=== PATIENT | male | born 1980 | race American Indian/Alaskan Native ===

== ENCOUNTER 2017-01-16 19:39 | Emergency (ER) | payer SELFPAY ==
[2017-01-16 20:54] LABS: Basophils % (Auto) 0.3 % (0.0-1.8); Eosinophils % (Auto) 0.4 % (0.0-4.3); Hematocrit 48.1 % (35.5-45.6); Hemoglobin 15.7 gm/dl (11.8-15.2); Mean Corpuscular HGB Conc 33 % (32-34); Mean Corpuscular Hemoglobin 26 pg (28-32); Mean Corpuscular Volume 81 fl (84-94); Platelet Count 314 K/mm3 (140-440); Red Blood Count 5.98 M/mm3 (3.65-5.03); Red Cell Distribution Width 14.6 % (13.2-15.2); White Blood Count 13.3 K/mm3 (4.5-11.0)
[2017-01-16 21:02] LABS: Bilirubin,Urine NEG (Negative); Blood,Urine NEG (Negative); Ketones,Urine NEG (Negative); Leukocyte Esterase,Urine NEG (Negative); Mucus,Urine FEW /HPF; Nitrite,Urine NEG (Negative); Protein,Urine <15 mg/dL mg/dL (Negative); Urobilinogen,Urine < 2.0 mg/dL (<2.0)
[2017-01-16 21:10] LABS: Alanine Aminotransferase 14 units/L (7-56); Albumin 4.8 g/dL (3.9-5); Albumin/Globulin Ratio 1.8 %; Alkaline Phosphatase 75 units/L (35-129); Anion Gap 19 mmol/L; BUN/Creatinine Ratio 6.92; Blood Urea Nitrogen 9 mg/dL (9-20); Calcium 9.8 mg/dL (8.4-10.2); Carbon Dioxide 27 mmol/L (22-30); Chloride 97.7 mmol/L (98-107); Glucose 105 mg/dL (75-100); Lipase 34 units/L (13-60); Potassium 3.8 mmol/L (3.6-5.0); Sodium 140 mmol/L (137-145); Total Protein 7.4 g/dL (6.3-8.2)
--- NOTE | 2017-01-16 23:18 | Emergency Department Report ---
ED Abdominal Pain HPI - General Chief Complaint: Abdominal Pain Stated Complaint: ABD/CHEST PAIN Time Seen by Provider: 01/16/17 23:12 Source: patient Mode of arrival: Ambulatory Limitations: No Limitations - History of Present Illness Initial Comments: This is a 36-year-old gentleman with three-day history of epigastric discomfort with occasional nausea vomiting. He reports burning that extends up his chest as well. He states he had similar problem approximately one year ago and was told it was due to ulcer disease. He was placed on antacids for a month that time. He states he resolved. He reports again over the last few days he's had more worsening problems again. He does report improvement initially with food and then worsening shortly after. Denies any hematochezia or hematemesis. Reports pain being in the epigastric region. No radiation to the back. Does have some radiation again into the chest. No fever is reported. No trauma reported. - Related Data Previous Rx's Medication Instructions Recorded Last Taken Type Omeprazole Magnesium [PriLOSEC Otc] 20 mg PO QDAY #30 tablet. 01/17/17 Unknown Rx Promethazine [Phenergan TAB] 25 mg PO Q8HR PRN #20 tab 01/17/17 Unknown Rx oxyCODONE /ACETAMINOPHEN [Percocet 1 tab PO Q6HR PRN #20 tablet 01/17/17 Unknown Rx 5/325] Allergies Allergy/AdvReac Type Severity Reaction Status Date / Time No Known Allergies Allergy Verified 09/17/14 03:20 ED Review of Systems ROS: Stated complaint: ABD/CHEST PAIN Other details as noted in HPI Comment: All other systems reviewed and negative Constitutional: denies: chills, fever Eyes: denies: eye pain, eye discharge, vision change ENT: denies: ear pain, throat pain Respiratory: denies: cough, shortness of breath, wheezing Cardiovascular: denies: chest pain, palpitations Endocrine: no symptoms reported Gastrointestinal: abdominal pain, nausea, vomiting. denies: diarrhea Genitourinary: denies: urgency, dysuria Musculoskeletal: denies: back pain, joint swelling, arthralgia Skin: denies: rash, lesions Neurological: denies: headache, weakness, paresthesias Psychiatric: denies: anxiety, depression Hematological/Lymphatic: denies: easy bleeding, easy bruising ED Past Medical Hx - Past Medical History Previous Medical History?: Yes Hx Renal Disease: Yes (renal insufficiency) Hx Asthma: Yes - Surgical History Past Surgical History?: No - Social History Smoking Status: Current Every Day Smoker Substance Use Type: None - Medications Home Medications: Home Medications Medication Instructions Recorded Confirmed Last Taken Type Omeprazole Magnesium [PriLOSEC Otc] 20 mg PO QDAY #30 tablet. 01/17/17 Unknown Rx Promethazine [Phenergan TAB] 25 mg PO Q8HR PRN #20 tab 01/17/17 Unknown Rx oxyCODONE /ACETAMINOPHEN [Percocet 1 tab PO Q6HR PRN #20 tablet 01/17/17 Unknown Rx 5/325] ED Physical Exam - General Limitations: No Limitations General appearance: alert, in no apparent distress - Head Head exam: Present: atraumatic, normocephalic - Eye Eye exam: Present: normal appearance. Absent: scleral icterus - ENT ENT exam: Present: normal exam, normal orophraynx, mucous membranes moist - Neck Neck exam: Present: normal inspection - Respiratory Respiratory exam: Present: normal lung sounds bilaterally. Absent: respiratory distress, wheezes - Cardiovascular Cardiovascular Exam: Present: regular rate, normal rhythm. Absent: systolic murmur, diastolic murmur, rubs, gallop - GI/Abdominal GI/Abdominal exam: Present: soft, tenderness (epigastric region), normal bowel sounds. Absent: guarding - Rectal Rectal exam: Present: deferred - Extremities Exam Extremities exam: Present: normal inspection - Back Exam Back exam: Present: normal inspection. Absent: CVA tenderness (R), CVA tenderness (L), vertebral tenderness - Neurological Exam Neurological exam: Present: alert, oriented X3 - Psychiatric Psychiatric exam: Present: normal affect, normal mood - Skin Skin exam: Present: warm, dry, intact, normal color. Absent: rash ED Course Vital Signs 01/16/17 01/16/17 01/16/17 19:56 22:00 23:00 Temperature 99.2 F 98 F Pulse Rate 55 L 57 L Respiratory 18 16 16 Rate Blood Pressure 140/112 Blood Pressure 155/64 [Left] O2 Sat by Pulse 100 100 100 Oximetry 01/17/17 01:00 Temperature Pulse Rate 58 L Respiratory 16 Rate Blood Pressure Blood Pressure 113/61 [Left] O2 Sat by Pulse 100 Oximetry - Reevaluation(s) Reevaluation #1: 01/16/17 23:13 ECG at 1942 demonstrating sinus bradycardia at 53 bpm with a normal SD and QRS. Normal axis is noted as well. There are Q waves noted subtotally otherwise unremarkable. Reevaluation #2: 01/17/17 06:01 Labs and ECG are noted. They're unremarkable in general. There is a past suspicion of this being due to peptic ulcer disease. ECG is unremarkable again. I do not suspect cardiac etiology. Labs are unremarkable as well. I feel appropriate course of action at this time is to trial on PPI. I do not have suspicion for surgical etiology. ED Medical Decision Making - Lab Data Result diagrams: 01/16/17 20:15 01/16/17 20:15 Critical care attestation.: If time is entered above; I have spent that time in minutes in the direct care of this critically ill patient, excluding procedure time. ED Disposition Clinical Impression: Dyspepsia Abdominal pain Qualifiers: Abdominal location: epigastric Qualified Code(s): R10.13 - Epigastric pain Disposition: DISCHARGED TO HOME OR SELFCARE Is pt being admited?: No Does the pt Need Aspirin: No Condition: Stable Instructions: Peptic Ulcer (ED), Diet for Ulcers and Gastritis (ED) Additional Instructions: No ibuprofen, aspirin or Aleve. Healthy diet. Avoid spicy food. Prescriptions: Omeprazole Magnesium [PriLOSEC Otc] 20 mg PO QDAY #30 tablet. oxyCODONE /ACETAMINOPHEN [Percocet 5/325] 1 tab PO Q6HR PRN #20 tablet PRN Reason: Pain Promethazine [Phenergan TAB] 25 mg PO Q8HR PRN #20 tab PRN Reason: Nausea Referrals: PRIMARY CARE, [Primary Care Provider] - 3-5 Days [facility] [Provider Group] - 3-5 Days Time of Disposition: :23
[2017-01-16] MEDS ORDERED: PROTONIX IV ONE (23:21)
[2017-01-16] MEDS ORDERED: ZOFRAN IV ONE (23:22)
[2017-01-16] MEDS ORDERED: NACL 0.9% 1000 ML 1,000 ML IV ONE (23:22)
[2017-01-16] MEDS ORDERED: DILAUDID IV ONE (23:22)
[2017-01-17 02:15] VITALS: BP 113/61
== END 2017-01-17 02:00 | disposition home or self-care (01) ==
LOC: ED 19:39
DX: R10.13 Epigastric pain (principal); J45.909 Unspecified asthma, uncomplicated; F17.200 Nicotine dependence, unspecified, uncomplicated
CPT/HCPCS: 36415; 80048; 80053; 81001; 83690; 84484; 85025; 93005; 93010; 96361; 96374; 96375; 99284; C9113; J1170; J2405; J7030

== ENCOUNTER 2018-01-31 21:42 | Emergency (ER) | payer SELFPAY ==
[2018-01-31 22:47] LABS: Basophils % (Auto) 0.4 % (0.0-1.8); Eosinophils % (Auto) 0.4 % (0.0-4.3); Hemoglobin 14.5 gm/dl (11.8-15.2); Lymphocytes # (Auto) 1.5 K/mm3 (1.2-5.4); Lymphocytes % (Auto) 19.4 % (13.4-35.0); Mean Corpuscular HGB Conc 33 % (32-34); Mean Corpuscular Hemoglobin 26 pg (28-32); Mean Corpuscular Volume 79 fl (84-94); Monocytes # (Auto) 0.4 K/mm3 (0.0-0.8); Platelet Count 342 K/mm3 (140-440); Red Blood Count 5.59 M/mm3 (3.65-5.03); Red Cell Distribution Width 14.1 % (13.2-15.2)
[2018-01-31 23:06] LABS: Alanine Aminotransferase 8 units/L (7-56); Albumin 4.1 g/dL (3.9-5); BUN/Creatinine Ratio 9; Blood Urea Nitrogen 9 mg/dL (9-20); Calcium 9.1 mg/dL (8.4-10.2); Hemolysis Index 5; Lipase 20 units/L (13-60)
[2018-01-31] MEDS ORDERED: ALUM-MAG HYDROX-SIMETH 200-200-20MG/5ML PO ONE (23:07)
[2018-01-31] MEDS ORDERED: TORADOL IM ONE (23:07)
[2018-01-31] MEDS ORDERED: PEPCID PO ONE (23:07)
[2018-01-31] MEDS ORDERED: LIDOCAINE VISCOUS 2% PO ONE (23:07)
--- NOTE | 2018-01-31 23:59 | Emergency Department Report ---
HPI - General Chief Complaint: Abdominal Pain Time Seen by Provider: 01/31/18 22:02 - HPI HPI: Patient is a 37-year-old male presents for evaluation of abdominal pain. The patient reports upper abdominal pain for the past one day, constant since onset , burning in quality, 10/10 in severity, exacerbated with eating. She shares that he has experienced similar symptoms in the past has a long standing history of peptic ulcers. The patient denies fever, chills, night sweats, diarrhea, blood in the stool, dark tarry stool, dysuria, hematuria, flank pain, genital discharge, inability to pass flatus. ED Past Medical Hx - Past Medical History Hx Renal Disease: Yes (renal insufficiency) Hx Asthma: Yes Additional medical history: gastric ulcers - Social History Smoking Status: Current Every Day Smoker - Medications Home Medications: Home Medications Medication Instructions Recorded Confirmed Last Taken Type Omeprazole Magnesium [PriLOSEC Otc] 20 mg PO QDAY #30 tablet. 01/17/17 Unknown Rx Promethazine [Phenergan TAB] 25 mg PO Q8HR PRN #20 tab 01/17/17 Unknown Rx oxyCODONE /ACETAMINOPHEN [Percocet 1 tab PO Q6HR PRN #20 tablet 01/17/17 Unknown Rx 5/325] Ondansetron [Zofran TAB] 4 mg PO Q8HR PRN #15 tablet 01/31/18 Unknown Rx traMADol [Ultram 50 MG tab] 50 mg PO Q6HR PRN #10 tablet 01/31/18 Unknown Rx ED Review of Systems ROS: Stated complaint: ABD PAIN Other details as noted in HPI Constitutional: denies: fever ENT: denies: throat or neck pain Respiratory: denies: cough, shortness of breath Cardiovascular: denies: chest pain Endocrine: denies unexplained weight loss or gain Gastrointestinal: reports: abdominal pain, nausea Genitourinary: denies: dysuria Musculoskeletal: denies: leg swelling Skin: denies: rash Neurological: denies: headache Hematological/Lymphatic: denies: easy bleeding or easy bruising Psych: denies sadness or hopelessness Physical Exam - Physical Exam Vital Signs: Vital Signs 01/31/18 01/31/18 01/31/18 21:48 21:59 22:00 Temperature 97.8 F Pulse Rate 54 L 54 L 49 L Respiratory 12 18 12 Rate Blood Pressure 120/78 120/78 Blood Pressure [Left] O2 Sat by Pulse 99 100 Oximetry 01/31/18 01/31/18 01/31/18 22:16 22:30 23:21 Temperature 98 F Pulse Rate 53 L 53 L 46 L Respiratory 15 12 12 Rate Blood Pressure 134/72 134/85 Blood Pressure 134/85 [Left] O2 Sat by Pulse 99 100 100 Oximetry 01/31/18 23:22 Temperature Pulse Rate Respiratory 12 Rate Blood Pressure Blood Pressure [Left] O2 Sat by Pulse Oximetry Physical Exam: General: well-nourished, well-developed, no acute distress Head: Normocephalic, atraumatic Eyes: normal sclera ENT: Mucous membranes are pink and moist Neck: trachea midline, neck supple, No neck stiffness, no cervical adenopathy Respiratory: Breath sounds equal bilaterally, no wheezing, rales, or rhonchi Cardio: S1 and S2 present, no murmurs, rubs, gallops, capillary refill is brisk Abdomen: Normoactive bowel sounds, soft abdomen, epigastric abdominal tenderness to palpation present, no rigidity, no guarding or rebound tenderness Chest WALL/Back: No tenderness to palpation of the chest wall, no CVA tenderness with percussion Musc: No pitting edema Skin: No rash Neuro: no facial drooping, normal speech Psych: Normal affect ED Course Vital Signs 01/31/18 01/31/18 01/31/18 21:48 21:59 22:00 Temperature 97.8 F Pulse Rate 54 L 54 L 49 L Respiratory 12 18 12 Rate Blood Pressure 120/78 120/78 Blood Pressure [Left] O2 Sat by Pulse 99 100 Oximetry 01/31/18 01/31/18 01/31/18 22:16 22:30 23:21 Temperature 98 F Pulse Rate 53 L 53 L 46 L Respiratory 15 12 12 Rate Blood Pressure 134/72 134/85 Blood Pressure 134/85 [Left] O2 Sat by Pulse 99 100 100 Oximetry 01/31/18 23:22 Temperature Pulse Rate Respiratory 12 Rate Blood Pressure Blood Pressure [Left] O2 Sat by Pulse Oximetry ED Medical Decision Making - Lab Data Result diagrams: 01/31/18 22:19 01/31/18 22:19 - Medical Decision Making The patient was seen and examined by myself. The patient is placed on a servicenow administrator developer and continuous pulse ox. On initial evaluation, the patient was found to be in no distress. Evaluation orders are placed. IV access is established and the patient is given 1 L normal saline fluid bolus and Zofran for nausea, and IV analgesic for pain. Lab results were non-concerning including WBC, hemoglobin, hematocrit, electrolytes, renal function, LFTs, lipase. The patient was reevaluated and reported that their symptoms were markedly improved. The patient is stable for discharge with outpatient follow- up. The patient is given follow-up and return instructions. The patient expressed understanding and agreed with the plan. The patient is discharged in stable condition. Critical care attestation.: If time is entered above; I have spent that time in minutes in the direct care of this critically ill patient, excluding procedure time. ED Disposition Clinical Impression: Abdominal pain, acute, epigastric, Symptomatic bradycardia Disposition: TO HOME OR SELFCARE Is pt being admited?: No Does the pt Need Aspirin: No Condition: Stable Instructions: Acute Abdominal Pain (ED), Peptic Ulcer (ED), Gastritis (ED) Referrals: PRIMARY CARE, [Primary Care Provider] - 3-5 Days Time of Disposition: 23:52
[2018-02-01 00:09] VITALS: BP 116/80
== END 2018-02-01 00:35 | disposition home or self-care (01) ==
LOC: ED 21:42
DX: R10.13 Epigastric pain (principal); R00.1 Bradycardia, unspecified; J45.909 Unspecified asthma, uncomplicated; F17.200 Nicotine dependence, unspecified, uncomplicated
CPT/HCPCS: 36415; 80053; 83690; 85025; 96372; 99284; J1885

== ENCOUNTER 2018-02-04 08:31 | Emergency (ER) | payer SELFPAY ==
[2018-02-04] MEDS ORDERED: NACL 0.9% 1000 ML 1,000 ML IV ONE (08:47)
[2018-02-04 09:25] LABS: Basophils % (Auto) 0.4 % (0.0-1.8); Eosinophils % (Auto) 0.4 % (0.0-4.3); Hematocrit 46.7 % (35.5-45.6); Hemoglobin 15.6 gm/dl (11.8-15.2); Lymphocytes # (Auto) 1.9 K/mm3 (1.2-5.4); Lymphocytes % (Auto) 23.9 % (13.4-35.0); Mean Corpuscular HGB Conc 33 % (32-34); Mean Corpuscular Hemoglobin 26 pg (28-32); Mean Corpuscular Volume 78 fl (84-94); Monocytes # (Auto) 0.5 K/mm3 (0.0-0.8); Monocytes % (Auto) 5.8 % (0.0-7.3); Red Blood Count 5.98 M/mm3 (3.65-5.03); Red Cell Distribution Width 14.4 % (13.2-15.2)
[2018-02-04 09:36] LABS: Alanine Aminotransferase 9 units/L (7-56); Albumin 4.3 g/dL (3.9-5); BUN/Creatinine Ratio 8; Blood Urea Nitrogen 8 mg/dL (9-20); Calcium 9.8 mg/dL (8.4-10.2); Hemolysis Index 35; INR 0.9 (0.87-1.13); Lipase 33 units/L (13-60)
[2018-02-04 09:37] LABS: Partial Thromboplastin Time 24.7 Sec. (24.2-36.6)
[2018-02-04 09:45] LABS: Platelet Count 296 K/mm3 (140-440)
--- NOTE | 2018-02-04 10:15 | Emergency Department Report ---
ED General Adult HPI - General Chief complaint: GI Bleed Stated complaint: ABDOMINAL PAIN/BLOOD IN STOOL/URINE Time Seen by Provider: 02/04/18 10:08 Source: patient Mode of arrival: Ambulatory Limitations: No Limitations - History of Present Illness Initial comments: 37-year-old male history of ulcer disease history of chest pain workup in 2015 + tobacco denies etoh. Seen here 4 days ago for abdominal pain presents today with possible GI bleed?, here states int epigastric pain, brb on tp this am worsening epigastric pain, no exertional cp, no tearing pain, no sob no calf pain or swelling, here eval "got worse when I left" x 4 days epigastric pain and one day ?black stool and brb on tp -: Gradual, days(s) Severity scale (0 -10): 10 Quality: burning, aching Consistency: intermittent Improves with: none Associated Symptoms: denies other symptoms, malaise. denies: confusion, chest pain, cough, diaphoresis, fever/chills, headaches, loss of appetite, nausea/ vomiting, rash, seizure, shortness of breath, syncope, weakness - Related Data Previous Rx's Medication Instructions Recorded Last Taken Type Omeprazole Magnesium [PriLOSEC Otc] 20 mg PO QDAY #30 tablet. 01/17/17 Unknown Rx Promethazine [Phenergan TAB] 25 mg PO Q8HR PRN #20 tab 01/17/17 Unknown Rx oxyCODONE /ACETAMINOPHEN [Percocet 1 tab PO Q6HR PRN #20 tablet 01/17/17 Unknown Rx 5/325] Ondansetron [Zofran TAB] 4 mg PO Q8HR PRN #15 tablet 01/31/18 Unknown Rx traMADol [Ultram 50 MG tab] 50 mg PO Q6HR PRN #10 tablet 01/31/18 Unknown Rx Pantoprazole [Protonix] 40 mg PO BID #28 tablet 02/04/18 Unknown Rx Allergies Allergy/AdvReac Type Severity Reaction Status Date / Time No Known Allergies Allergy Verified 09/17/14 03:20 ED Review of Systems ROS: Stated complaint: ABDOMINAL PAIN/BLOOD IN STOOL/URINE Other details as noted in HPI Comment: All other systems reviewed and negative Constitutional: denies: diaphoresis, fever, malaise Eyes: denies: eye discharge, vision change ENT: denies: dental pain, hearing loss, epistaxis Respiratory: denies: shortness of breath, SOB with exertion, SOB at rest, stridor Cardiovascular: denies: chest pain, palpitations, dyspnea on exertion, orthopnea , edema, syncope Gastrointestinal: abdominal pain, hematochezia. denies: diarrhea, hematemesis, melena Musculoskeletal: denies: joint swelling, arthralgia Skin: denies: change in color, change in hair/nails, pruritus Psychiatric: denies: auditory hallucinations Hematological/Lymphatic: denies: easy bruising ED Past Medical Hx - Past Medical History Previous Medical History?: Yes Hx Renal Disease: Yes (renal insufficiency) Hx Asthma: Yes Additional medical history: gastric ulcers - Surgical History Past Surgical History?: No - Social History Smoking Status: Current Every Day Smoker Substance Use Type: Alcohol, Marijuana, Non Opiate Pain, Other - Medications Home Medications: Home Medications Medication Instructions Recorded Confirmed Last Taken Type Omeprazole Magnesium [PriLOSEC Otc] 20 mg PO QDAY #30 tablet. 01/17/17 Unknown Rx Promethazine [Phenergan TAB] 25 mg PO Q8HR PRN #20 tab 01/17/17 Unknown Rx oxyCODONE /ACETAMINOPHEN [Percocet 1 tab PO Q6HR PRN #20 tablet 01/17/17 Unknown Rx 5/325] Ondansetron [Zofran TAB] 4 mg PO Q8HR PRN #15 tablet 01/31/18 Unknown Rx traMADol [Ultram 50 MG tab] 50 mg PO Q6HR PRN #10 tablet 01/31/18 Unknown Rx Pantoprazole [Protonix] 40 mg PO BID #28 tablet 02/04/18 Unknown Rx ED Physical Exam - General Limitations: No Limitations General appearance: alert, in no apparent distress, anxious - Head Head exam: Present: atraumatic, normocephalic - Eye Eye exam: Present: PERRL, EOMI - ENT ENT exam: Present: normal exam, normal orophraynx - Neck Neck exam: Present: normal inspection. Absent: tenderness, meningismus - Respiratory Respiratory exam: Present: normal lung sounds bilaterally. Absent: respiratory distress, wheezes, rales, rhonchi, stridor - Cardiovascular Cardiovascular Exam: Present: regular rate, normal rhythm. Absent: rubs, gallop - GI/Abdominal GI/Abdominal exam: Present: soft, tenderness. Absent: guarding, rebound, rigid , mass, pulsatile mass - Rectal Rectal exam: Present: normal inspection, heme (-) stool. Absent: black stool, bloody stool - Extremities Exam Extremities exam: Present: normal inspection, normal capillary refill. Absent: pedal edema, joint swelling - Back Exam Back exam: Present: normal inspection. Absent: CVA tenderness (R), CVA tenderness (L), muscle spasm, paraspinal tenderness, vertebral tenderness - Neurological Exam Neurological exam: Present: alert, oriented X3, CN II-XII intact. Absent: motor sensory deficit - Skin Skin exam: Absent: cyanosis, diaphoretic, erythema, urticaria, vesicles, petechiae, pallor, ecchymosis ED Course Vital Signs 02/04/18 02/04/18 08:45 10:11 Temperature 98.5 F Pulse Rate 62 50 L Respiratory 20 12 Rate Blood Pressure 127/87 Blood Pressure 135/84 [Left] O2 Sat by Pulse 93 100 Oximetry ED Medical Decision Making - Lab Data Result diagrams: 02/04/18 09:14 02/04/18 09:14 - EKG Data -: EKG Interpreted by Me EKG shows normal: sinus rhythm - EKG Data When compared to previous EKG there are: no significant change Interpretation: other (normal sinus rhythm rate of 81 ischemic change) - Radiology Data Radiology results: report reviewed - Medical Decision Making Patient is improved in the ED, heme negative on rectal exam with brown stool, laboratory assessment is unremarkable including normal LFTs and normal H&H negative troponin at 3 days. Chest x-ray is negative nor acute abdomen at this time vital signs stable tolerating by mouth patient is stable for outpatient follow-up with GI he'll be started back on his PPI and return immediately if new alarming symptoms. However he is hemodynamically stable no active bleeding is appreciated chest pain was resolved in the ED with negative troponin 3 days and no acute ischemic changes on EKG tolerating by mouth. For outpatient follow -up by GI for epigastric pain and bright red blood on the toilet paper. Critical care attestation.: If time is entered above; I have spent that time in minutes in the direct care of this critically ill patient, excluding procedure time. ED Disposition Clinical Impression: Abdominal pain, acute, epigastric, Hematochezia Disposition: TO HOME OR SELFCARE Is pt being admited?: No Condition: Stable Instructions: Rectal Bleeding (ED), Peptic Ulcer (ED) Additional Instructions: See the doctor listed return immediately is going alarming symptoms or call 911 especially if you're having dizzy spells black or bloody stool worsening or persistent symptoms Prescriptions: Pantoprazole [Protonix] 40 mg PO BID #28 tablet Referrals: PRIMARY MD PENNIE [Primary Care Provider] - 3-5 Days ELLI TEJADA MD [Staff Physician] - 3-5 Days Forms: Accompanied Note Time of Disposition: 11:49
[2018-02-04] MEDS ORDERED: PROTONIX IV ONE (10:25)
[2018-02-04] MEDS ORDERED: REGLAN IV ONE (11:18)
[2018-02-04] MEDS ORDERED: ZOFRAN ONE (11:19)
[2018-02-04] MEDS ORDERED: MORPHINE IV ONE (11:19)
[2018-02-04] MEDS ORDERED: ZOFRAN IV ONE (11:19)
[2018-02-04] MEDS ORDERED: MORPHINE ONE (11:19)
--- NOTE | 2018-02-04 11:20 | XRay Report ---
CHEST 2 VIEWS INDICATION: Epigastric pain. COMPARISON: 01/18/2015. FINDINGS: Frontal and lateral chest radiographs demonstrate normal cardiomediastinal silhouette. Clear lungs. Intact bones. EKG leads. CONCLUSION: No acute disease in the chest. Thank you for the opportunity to participate in this patient's care.
[2018-02-04 11:49] LABS: Bilirubin,Urine NEG (Negative); Blood,Urine NEG (Negative); Color,Urine Yellow (Yellow); Urobilinogen,Urine < 2.0 mg/dL (<2.0)
[2018-02-04 12:48] VITALS: BP 107/60
== END 2018-02-04 13:00 | disposition home or self-care (01) ==
LOC: ED 08:31
DX: R10.13 Epigastric pain (principal); K92.1 Melena; J45.909 Unspecified asthma, uncomplicated; F17.200 Nicotine dependence, unspecified, uncomplicated; F12.10 Cannabis abuse, uncomplicated
CPT/HCPCS: 36415; 71046; 80053; 81001; 82271; 83690; 84484; 85025; 85610; 85730; 86850; 86900; 86901; 93005; 93010; 96361; 96374; 96375; 99284; C9113; J2270; J2405; J2765; J7030

== ENCOUNTER 2018-02-06 17:54 | Inpatient (IN) | payer SELFPAY ==
--- NOTE | 2018-02-06 21:21 | Emergency Department Report ---
ED Abdominal Pain HPI - General Chief Complaint: Abdominal Pain Stated Complaint: ABDOMINAL PAIN Time Seen by Provider: 02/06/18 21:00 Source: patient, EMS Mode of arrival: Wheelchair Limitations: No Limitations - History of Present Illness MD Complaint: abdominal pain -: Gradual Location: diffuse Radiation: none Migration to: no migration Severity: severe Severity scale (0 -10): 9 Quality: sharp Consistency: constant Improves With: nothing Worsens With: nothing Associated Symptoms: nausea, vomiting - Related Data Previous Rx's Medication Instructions Recorded Last Taken Type Omeprazole Magnesium [PriLOSEC Otc] 20 mg PO QDAY #30 tablet. 01/17/17 Unknown Rx Promethazine [Phenergan TAB] 25 mg PO Q8HR PRN #20 tab 01/17/17 Unknown Rx oxyCODONE /ACETAMINOPHEN [Percocet 1 tab PO Q6HR PRN #20 tablet 01/17/17 Unknown Rx 5/325] Ondansetron [Zofran TAB] 4 mg PO Q8HR PRN #15 tablet 01/31/18 Unknown Rx traMADol [Ultram 50 MG tab] 50 mg PO Q6HR PRN #10 tablet 01/31/18 Unknown Rx Pantoprazole [Protonix] 40 mg PO BID #28 tablet 02/04/18 Unknown Rx Allergies Allergy/AdvReac Type Severity Reaction Status Date / Time No Known Allergies Allergy Verified 02/06/18 17:55 ED Review of Systems ROS: Stated complaint: ABDOMINAL PAIN Other details as noted in HPI Comment: All other systems reviewed and negative Constitutional: denies: chills, fever Eyes: denies: vision change ENT: denies: ear pain, dental pain Respiratory: denies: cough, shortness of breath Cardiovascular: denies: chest pain, palpitations Endocrine: no symptoms reported Gastrointestinal: abdominal pain, nausea, vomiting. denies: diarrhea Genitourinary: denies: urgency, dysuria, frequency Musculoskeletal: denies: back pain, joint swelling Skin: denies: lesions, change in color Neurological: denies: headache, weakness, numbness Psychiatric: anxiety Hematological/Lymphatic: denies: easy bleeding, easy bruising ED Past Medical Hx - Past Medical History Hx Renal Disease: Yes (renal insufficiency) Hx Asthma: Yes Additional medical history: gastric ulcers - Social History Smoking Status: Never Smoker Substance Use Type: None - Medications Home Medications: Home Medications Medication Instructions Recorded Confirmed Last Taken Type Omeprazole Magnesium [PriLOSEC Otc] 20 mg PO QDAY #30 tablet. 01/17/17 Unknown Rx Promethazine [Phenergan TAB] 25 mg PO Q8HR PRN #20 tab 01/17/17 Unknown Rx oxyCODONE /ACETAMINOPHEN [Percocet 1 tab PO Q6HR PRN #20 tablet 01/17/17 Unknown Rx 5/325] Ondansetron [Zofran TAB] 4 mg PO Q8HR PRN #15 tablet 01/31/18 Unknown Rx traMADol [Ultram 50 MG tab] 50 mg PO Q6HR PRN #10 tablet 01/31/18 Unknown Rx Pantoprazole [Protonix] 40 mg PO BID #28 tablet 02/04/18 Unknown Rx ED Physical Exam - General Limitations: No Limitations General appearance: alert, in distress - Head Head exam: Present: atraumatic, normocephalic, normal inspection - Eye Eye exam: Present: normal appearance, PERRL, EOMI Pupils: Present: normal accommodation - ENT ENT exam: Present: normal exam, normal orophraynx, mucous membranes moist - Neck Neck exam: Present: normal inspection, full ROM. Absent: tenderness - Respiratory Respiratory exam: Present: normal lung sounds bilaterally. Absent: respiratory distress - Cardiovascular Cardiovascular Exam: Present: regular rate, normal rhythm, normal heart sounds - GI/Abdominal GI/Abdominal exam: Present: soft, tenderness, guarding, rebound, normal bowel sounds. Absent: distended - External exam: Present: normal external exam, erythema - Extremities Exam Extremities exam: Present: normal inspection, full ROM, normal capillary refill. Absent: tenderness - Back Exam Back exam: Present: normal inspection, full ROM - Neurological Exam Neurological exam: Present: alert, oriented X3, CN II-XII intact - Psychiatric Psychiatric exam: Present: normal affect - Skin Skin exam: Present: warm, dry, intact, normal color ED Course Vital Signs 02/06/18 02/06/18 02/06/18 17:56 22:05 22:13 Temperature 98.7 F 98.2 F Pulse Rate 68 50 L Respiratory 16 18 18 Rate Blood Pressure 148/92 Blood Pressure 131/56 [Right] O2 Sat by Pulse 99 100 Oximetry - Reevaluation(s) Reevaluation #1: 02/06/18 23:34 I discussed patient With the hospitalist on-call Dr Mera. We will admit the patient to the hospital for further evaluation and management. ED Medical Decision Making - Lab Data Result diagrams: 02/06/18 21:33 02/06/18 22:15 - Radiology Data Radiology results: report reviewed, image reviewed - Medical Decision Making Abdominal pain. Nausea vomiting. Critical care attestation.: If time is entered above; I have spent that time in minutes in the direct care of this critically ill patient, excluding procedure time. ED Disposition Clinical Impression: Abdominal pain Qualifiers: Abdominal location: generalized Qualified Code(s): R10.84 - Generalized abdominal pain Nausea and vomiting Qualifiers: Vomiting type: unspecified Vomiting Intractability: unspecified Qualified Code( s): R11.2 - Nausea with vomiting, unspecified Disposition: 09 OP ADMIT IP TO THIS HOSP Is pt being admited?: Yes Does the pt Need Aspirin: No Condition: Stable Referrals: PRIMARY CARE, [Primary Care Provider] - 3-5 Days Time of Disposition: 23:34
[2018-02-06] MEDS ORDERED: ZOFRAN IV ONE (21:26)
[2018-02-06] MEDS ORDERED: NACL 0.9% 1000 ML 1,000 ML IV ONE (21:26)
[2018-02-06] MEDS ORDERED: PROTONIX IV ONE (21:26)
[2018-02-06 21:45] LABS: Basophils % (Auto) 0.3 % (0.0-1.8); Eosinophils % (Auto) 0.3 % (0.0-4.3); Hematocrit 43.9 % (35.5-45.6); Hemoglobin 14.6 gm/dl (11.8-15.2); Lymphocytes # (Auto) 1.9 K/mm3 (1.2-5.4); Lymphocytes % (Auto) 23.8 % (13.4-35.0); Mean Corpuscular HGB Conc 33 % (32-34); Mean Corpuscular Hemoglobin 26 pg (28-32); Mean Corpuscular Volume 79 fl (84-94); Monocytes # (Auto) 0.5 K/mm3 (0.0-0.8); Monocytes % (Auto) 5.9 % (0.0-7.3); Platelet Count 327 K/mm3 (140-440); Red Blood Count 5.58 M/mm3 (3.65-5.03); Red Cell Distribution Width 14.1 % (13.2-15.2)
[2018-02-06 22:03] LABS: INR 0.94 (0.87-1.13)
--- NOTE | 2018-02-06 22:08 | XRay Report ---
FINAL REPORT PROCEDURE: XR CHEST 1V AP TECHNIQUE: Chest radiograph anteroposterior view. CPT 83525 HISTORY: Abdominal Pain COMPARISON: No prior studies are available for comparison. FINDINGS: Heart: Normal. Mediastinum/Vessels: Normal. Lungs/Pleural space: Normal. Bony thorax: No acute osseous abnormality. Life support devices: None. IMPRESSION: No acute cardiopulmonary abnormality.
[2018-02-06] MEDS ORDERED: MORPHINE IV ONE (22:32)
--- NOTE | 2018-02-06 22:37 | Cat Scan Report ---
FINAL REPORT PROCEDURE: CT ABDOMEN PELVIS W CON TECHNIQUE: Computerized axial tomography of the abdomen and pelvis was performed after the IV injection of iodinated nonionic contrast. HISTORY: Abdominal Pain COMPARISON: No prior studies are available for comparison. FINDINGS: Liver, spleen, pancreas and adrenal glands are within normal limits. Bilateral kidneys demonstrate uniform enhancement without hydronephrosis. Aorta is of normal caliber. There is no free fluid or free air. Gallbladder is unremarkable. Small bowel loops are within normal limits. Moderate degree residual stool is noted. Appendix is partially visualized and appears unremarkable. Multiple ill-defined sclerotic densities are identified scattered throughout bony skeleton. IMPRESSION: No acute intra-abdominal or pelvic pathology. Multiple sclerotic skeletal lesions are suspicious for metastatic disease. Bone scan is recommended.
[2018-02-06 22:50] LABS: Alanine Aminotransferase 10 units/L (7-56); Albumin 4.2 g/dL (3.9-5); BUN/Creatinine Ratio 9; Blood Urea Nitrogen 10 mg/dL (9-20); Calcium 9.5 mg/dL (8.4-10.2); Hemolysis Index 88
[2018-02-06 23:28] LABS: Bilirubin,Urine NEG (Negative); Blood,Urine NEG (Negative); Color,Urine Yellow (Yellow); Protein,Urine <15 mg/dL mg/dL (Negative); Urobilinogen,Urine < 2.0 mg/dL (<2.0)
[2018-02-07] MEDS ORDERED: ZOFRAN IV PRN (01:13)
[2018-02-07] MEDS ORDERED: TYLENOL PO PRN (01:14)
[2018-02-07] MEDS: HEPARIN SUB-Q SCH ×3 (01:39→21:41)
[2018-02-07] MEDS: NACL 0.9% 1000 ML 1,000 ML IV SCH ×2 (07:02→16:58)
[2018-02-07] MEDS: MORPHINE IV PRN ×3 (07:03→21:44)
[2018-02-07] MEDS: PROTONIX PO SCH (10:58)
--- NOTE | 2018-02-07 12:59 | Hem/Onc Consultation ---
History of Present Illness - Reason for Consult Consult date: 02/07/18 - History of Present Illness 37 yo patient admit with several week history of epigastric pain . He has a hx of peptic ulcer disease and has come to the ER 3 times this month for complaint of epigastric pain with bleeding CT suggests sclerotic lesions of unknown etiology Recommend: 1. SPEP to rule out myeloma - PSA to rule out prostate cancer 2. Bone scan 3. Ferritin to rule out iron def anemia 4 GI eval for EGD Past History Past Surgical History: No surgical history Social history: smoking Family history: no significant family history Medications and Allergies Allergies Allergy/AdvReac Type Severity Reaction Status Date / Time No Known Allergies Allergy Verified 02/06/18 17:55 Home Medications Medication Instructions Recorded Confirmed Last Taken Type Omeprazole Magnesium [PriLOSEC Otc] 20 mg PO QDAY #30 tablet. 01/17/17 Unknown Rx Promethazine [Phenergan TAB] 25 mg PO Q8HR PRN #20 tab 01/17/17 Unknown Rx oxyCODONE /ACETAMINOPHEN [Percocet 1 tab PO Q6HR PRN #20 tablet 01/17/17 Unknown Rx 5/325] Ondansetron [Zofran TAB] 4 mg PO Q8HR PRN #15 tablet 01/31/18 Unknown Rx traMADol [Ultram 50 MG tab] 50 mg PO Q6HR PRN #10 tablet 01/31/18 Unknown Rx Pantoprazole [Protonix] 40 mg PO BID #28 tablet 02/04/18 Unknown Rx Active Meds: Active Medications Acetaminophen (Tylenol) 650 mg PO Q4H PRN PRN Reason: For Pain/Fever/Headache Heparin Sodium (Porcine) (Heparin) 5,000 unit SUB-Q Q12HR MAGALI Last Admin: 02/07/18 10:57 Dose: 5,000 unit Sodium Chloride (Nacl 0.9% 1000 Ml) 1,000 mls @ 100 mls/hr IV DIRECT MAGALI Last Admin: 02/07/18 07:02 Dose: 100 mls/hr Morphine Sulfate (Morphine) 2 mg IV Q3H PRN PRN Reason: Pain, Moderate (4-6) Last Admin: 02/07/18 07:03 Dose: 2 mg Ondansetron HCl (Zofran) 4 mg IV Q6H PRN PRN Reason: Nausea And Vomiting Last Admin: 02/07/18 10:57 Dose: 4 mg Pantoprazole (Protonix) 40 mg PO QDAY MAGALI Last Admin: 02/07/18 10:58 Dose: 40 mg Review of Systems Gastrointestinal: abdominal pain, nausea, vomiting, constipation, change in bowel habits, melena Exam - Constitutional Vitals: Last Vital Signs Temp 98.9 F 02/07/18 07:45 Pulse 48 L 02/07/18 07:45 Resp 20 02/07/18 07:45 BP 109/60 02/07/18 07:45 Pulse Ox 99 02/07/18 07:45 Pain Intensity (0-10): 4/10 General appearance: mild distress Performance status: 3-limited selfcare - EENT Eyes: PERRL, EOM intact ENT: hearing intact, clear oral mucosa, dentition normal - Neck Neck: supple, normal ROM - Respiratory Respiratory effort: Positive: normal Respiratory: bilateral: CTA - Cardiovascular Rhythm: regular Extremities: no ischemia, No edema - Gastrointestinal Localized Gastrointestinal: tender: epigastric periumbilical - Integumentary Integumentary: clear, warm, dry Results - Labs lab Results: Laboratory Results - last 24 hr 02/06/18 02/06/18 02/06/18 21:33 21:33 21:33 WBC 8.1 RBC 5.58 H Hgb 14.6 Hct 43.9 MCV 79 L MCH 26 L MCHC 33 RDW 14.1 Plt Count 327 Lymph % (Auto) 23.8 [place] % (Auto) 5.9 Eos % (Auto) 0.3 Baso % (Auto) 0.3 Lymph # 1.9 [place] # 0.5 Eos # 0.0 Baso # 0.0 Seg Neutrophils % 69.7 Seg Neutrophils # 5.7 PT 13.0 INR 0.94 Sodium Potassium Chloride Carbon Dioxide Anion Gap BUN Creatinine Estimated GFR BUN/Creatinine Ratio Glucose Calcium Total Bilirubin AST ALT Alkaline Phosphatase Total Protein Albumin Albumin/Globulin Ratio Lipase 20 Urine Color Urine Turbidity Urine pH Ur Specific [place] Urine Protein Urine Glucose (UA) Urine Ketones Urine Blood Urine Nitrite Urine Bilirubin Urine Urobilinogen Ur Leukocyte Esterase Urine WBC (Auto) Urine RBC (Auto) U Epithel Cells (Auto) Urine Yeast (Budding) 02/06/18 02/06/18 22:15 23:05 WBC RBC Hgb Hct MCV MCH MCHC RDW Plt Count Lymph % (Auto) [place] % (Auto) Eos % (Auto) Baso % (Auto) Lymph # [place] # Eos # Baso # Seg Neutrophils % Seg Neutrophils # PT INR Sodium 136 L Potassium 4.4 Chloride 93.9 L Carbon Dioxide 27 Anion Gap 20 BUN 10 Creatinine 1.1 Estimated GFR > 60 BUN/Creatinine Ratio 9 Glucose 108 H Calcium 9.5 Total Bilirubin 0.60 AST 18 ALT 10 Alkaline Phosphatase 78 Total Protein 7.0 Albumin 4.2 Albumin/Globulin Ratio 1.5 Lipase Urine Color Yellow Urine Turbidity Clear Urine pH 8.0 H Ur Specific [place] 1.056 H Urine Protein <15 mg/dl Urine Glucose (UA) Neg Urine Ketones 20 Urine Blood Neg Urine Nitrite Neg Urine Bilirubin Neg Urine Urobilinogen < 2.0 Ur Leukocyte Esterase Neg Urine WBC (Auto) 1.0 Urine RBC (Auto) 8.0 U Epithel Cells (Auto) < 1.0 Urine Yeast (Budding) Few - Imaging and cardiology Chest x-ray: report reviewed CT scan - abdomen: report reviewed Assessment and Plan check ferritin, likely patient has subclinical iron deficiency - SPEP and PSA to rule out underlying malignancy - Bone scan Patient need GI eval - Patient Problems (1) Abdominal pain Current Visit: Yes Status: Acute Qualifiers: Abdominal location: generalized Qualified Code(s): R10.84 - Generalized abdominal pain
--- NOTE | 2018-02-07 13:22 | Progress Note ---
Assessment and Plan - Epigastric pain Commence patient on Pepcid - Nausea vomiting Commence patient on Zofran. IV hydration. - Metastatic bone lesion by CT scan Oncologist consulted SPEP and bone scan ordered - DVT and GI ppx with heparing and Pepcid Subjective Date of service: 02/07/18 Principal diagnosis: metastatic bone lesions, abdominal pain, nausea or vomiting. Interval history: Patient seen and examined. Still complains of abdominal pain with nausea vomiting. Denies any fever. No hematemesis or melena. Objective - Exam Narrative Exam: Constitutional: Well-nourished well-developed. In no distress Head: Normocephalic atraumatic Eyes: Pupils are equal round and reactive to light Nose: No enlarged turbinates, no septal deviation. Mouth: Moist mucous membranes. Neck: Supple no thyromegaly. No bruit. No JVD Heart: Regular rate and rhythm, S1-S2 abnormal. No rubs murmurs or gallop Lungs: Clear to auscultation bilaterally no rales or rhonchi Abdomen: Soft, epigastric tenderness. Bowel sound are present. Extremities: No edema no cyanosis and no clubbing. Neuro: Alert oriented Oriented x3. No focal sensory or motor deficit. Skin: No rashes no hyperemic spots Psychiatry: Euthymic. Calm. - Constitutional Vitals: Vital Signs - 12hr 02/07/18 02/07/18 02/07/18 01:40 02:27 04:00 Temperature 98.6 F Pulse Rate 45 L 45 L Respiratory 16 12 12 Rate Blood Pressure 115/63 Blood Pressure 121/64 [Right] O2 Sat by Pulse 99 100 100 Oximetry 02/07/18 07:45 Temperature 98.9 F Pulse Rate 48 L Respiratory 20 Rate Blood Pressure 109/60 Blood Pressure [Right] O2 Sat by Pulse 99 Oximetry - Labs CBC & Chem 7: 02/06/18 21:33 02/06/18 22:15 Labs: Abnormal lab results 02/06/18 02/06/18 02/06/18 Range/Units 21:33 22:15 23:05 RBC 5.58 H (3.65-5.03) M/mm3 MCV 79 L (84-94) fl MCH 26 L (28-32) pg Sodium 136 L (137-145) mmol/L Chloride 93.9 L (98-107) mmol/L Glucose 108 H (75-100) mg/dL Urine pH 8.0 H (5.0-7.0) Ur Specific [place] 1.056 H (1.003-1.030)
[2018-02-08] MEDS: NACL 0.9% 1000 ML 1,000 ML IV SCH ×2 (03:11→15:50)
[2018-02-08] MEDS: MORPHINE IV PRN ×2 (03:11→21:54)
--- NOTE | 2018-02-08 09:38 | Hem/Onc Progress Note ---
Assessment and Plan psa nl spep pending will d/w radiology about biopsy of the lesion Subjective Date of service: 02/08/18 Interval history: pt feels fair Objective - Constitutional Vitals: Last Vital Signs Temp 99.1 F 02/07/18 21:31 Pulse 82 02/07/18 21:31 Resp 20 02/07/18 21:31 BP 99/54 02/07/18 21:30 Pulse Ox 98 02/07/18 21:31 General appearance: no acute distress - Neck Neck: supple - Respiratory Respiratory effort: Positive: normal - Cardiovascular Rhythm: regular Extremities: No edema - Gastrointestinal General gastrointestinal: Present: soft - Labs Lab Results: Laboratory Results - last 24 hr 02/07/18 02/07/18 13:29 13:29 Ferritin 178.2 Prostate Specific Ag 0.49
[2018-02-08] MEDS: HEPARIN SUB-Q SCH ×2 (10:04→21:54)
[2018-02-08] MEDS: PROTONIX PO SCH (10:05)
--- NOTE | 2018-02-08 13:35 | Progress Note ---
Assessment and Plan - Metastatic bone lesion by CT scan Oncologist consulted SPEP and bone scan ordered Plan for bone biopsy tomorrow - Epigastric pain, likely due to GERD Commence patient on Pepcid - Nausea vomiting Commence patient on Zofran. IV hydration. - DVT and GI ppx with heparin and Pepcid Physical exam: Constitutional: Well-nourished well-developed. In no distress Head: Normocephalic atraumatic Eyes: Pupils are equal round and reactive to light Nose: No enlarged turbinates, no septal deviation. Mouth: Moist mucous membranes. Neck: Supple no thyromegaly. No bruit. No JVD Heart: Regular rate and rhythm, S1-S2 abnormal. No rubs murmurs or gallop Lungs: Clear to auscultation bilaterally no rales or rhonchi Abdomen: Soft, epigastric tenderness. Bowel sound are present. Extremities: No edema no cyanosis and no clubbing. Neuro: Alert oriented Oriented x3. No focal sensory or motor deficit. Skin: No rashes no hyperemic spots Psychiatry: Euthymic. Calm. Subjective Date of service: 02/08/18 Principal diagnosis: metastatic bone lesions, abdominal pain, nausea or vomiting. Interval history: Patient seen and examined. Still complains of abdominal pain with nausea vomiting. Denies any fever. No hematemesis or melena. Objective - Labs CBC & Chem 7: 02/06/18 21:33 02/06/18 22:15
[2018-02-09] MEDS: MORPHINE IV PRN ×2 (01:17→23:43)
--- NOTE | 2018-02-09 09:23 | Hem/Onc Progress Note ---
Assessment and Plan For biopsy today. We will follow up. SPEP pending Subjective Date of service: 02/09/18 Interval history: pt feels fair . hungry Objective - Exam Narrative Exam: Anxious about biopsy. Hungry. Otherwise stable exam - Constitutional Vitals: Last Vital Signs Temp 98.3 F 02/09/18 07:26 Pulse 51 L 02/09/18 07:26 Resp 18 02/09/18 07:26 BP 100/47 02/09/18 07:26 Pulse Ox 98 02/09/18 07:26
--- NOTE | 2018-02-09 09:43 | Progress Note ---
Assessment and Plan Patient with multiple sclerotic lesions was which may represent bone islands. They demonstrate no areas of increased activity on nuclear medicine bone scan. Would defer bone biopsy at this time and recommend patient have a repeat CT scan in 3 months to document the stability Subjective Date of service: 02/09/18 Principal diagnosis: metastatic bone lesions, abdominal pain, nausea or vomiting. Interval history: Patient with multiple sclerotic lesions of his lumbar spine. No known underlying cancer. His clear medicine bone scan demonstrates no areas of increased activity the regions of the sclerotic bone islands. Patient will complains of vague abdominal pain Objective - Constitutional Vitals: Vital Signs - 12hr 02/08/18 02/08/18 02/08/18 21:54 22:00 22:24 Temperature Pulse Rate Respiratory 20 20 Rate Respiratory 20 Rate [Abdomen] Blood Pressure O2 Sat by Pulse Oximetry 02/09/18 02/09/18 02/09/18 01:17 01:47 07:26 Temperature 98.3 F Pulse Rate 51 L Respiratory 20 20 18 Rate Respiratory Rate [Abdomen] Blood Pressure 100/47 O2 Sat by Pulse 98 Oximetry General appearance: Present: no acute distress - EENT Eyes: PERRL ENT: hearing intact, clear oral mucosa - Neck Neck: supple, normal ROM - Respiratory Respiratory effort: normal Extremities: no ischemia - Gastrointestinal General gastrointestinal: Present: deferred Rectal Exam: deferred - Genitourinary Male genitourinary: deferred - Psychiatric Psychiatric: appropriate mood/affect, cooperative - Labs CBC & Chem 7: 02/06/18 21:33 02/06/18 22:15
[2018-02-09] MEDS: HEPARIN SUB-Q SCH ×2 (09:47→22:10)
[2018-02-09] MEDS: PROTONIX PO SCH (09:47)
--- NOTE | 2018-02-09 12:52 | Nuclear Medicine Report ---
NUCLEAR MEDICINE WHOLE-BODY BONE SCAN: 02/08/18 CLINICAL: Numerous sclerotic bone lesions on CT. COMPARISON: CT abdomen and pelvis 02/06/18 TECHNIQUE: 25 millicuries technetium 99m MDP was injected intravenously and whole body scans were obtained at 3 hours. FINDINGS: Relatively uniform intense uptake in the axial skeleton and diminished activity in the urinary tract is consistent with a "SuperScan". Subtle focal uptake to the left of midline in the T11 vertebral body correlates with the largest lesion identified on CT. The rest of the CT lesions of the spine and pelvis have no correlating uptake on this exam. However, uptake in the calvarium to the right of midline is suspicious for a metastatic lesion. Focal uptake in the distal left fibula. No other focal lesions are identified. IMPRESSION: 1. SuperScan typical of skeletal metastasis. 2. Uptake in the T11 vertebral body correlates with the largest lesion identified on CT. 3. Focal uptake in the calvarium to the right of midline is suspicious for a metastatic lesion. 4. Uptake in the distal left fibula at the ankle is suspicious but may be benign. Recommend correlation with ankle x-ray.
--- NOTE | 2018-02-09 15:12 | Progress Note ---
Assessment and Plan - Metastatic bone lesion by CT scan Oncologist consulted SPEP and bone scan ordered Plan for bone biopsy cancelled. will f/u with oncology - Epigastric pain, likely due to GERD Commence patient on Pepcid - Nausea vomiting Commence patient on Zofran. IV hydration. - DVT and GI ppx with heparin and Pepcid Physical exam: Constitutional: Well-nourished well-developed. In no distress Head: Normocephalic atraumatic Eyes: Pupils are equal round and reactive to light Nose: No enlarged turbinates, no septal deviation. Mouth: Moist mucous membranes. Neck: Supple no thyromegaly. No bruit. No JVD Heart: Regular rate and rhythm, S1-S2 abnormal. No rubs murmurs or gallop Lungs: Clear to auscultation bilaterally no rales or rhonchi Abdomen: Soft, epigastric tenderness. Bowel sound are present. Extremities: No edema no cyanosis and no clubbing. Neuro: Alert oriented Oriented x3. No focal sensory or motor deficit. Skin: No rashes no hyperemic spots Psychiatry: Euthymic. Calm. Subjective Date of service: 02/09/18 Principal diagnosis: metastatic bone lesions, abdominal pain, nausea or vomiting. Interval history: Patient seen and examined. Still complains of abdominal pain with nausea vomiting. Denies any fever. No hematemesis or melena. Objective - Constitutional Vitals: Vital Signs - 12hr 02/09/18 02/09/18 07:26 11:53 Temperature 98.3 F 98.9 F Pulse Rate 51 L 73 Respiratory 18 20 Rate Blood Pressure 100/47 121/67 O2 Sat by Pulse 98 97 Oximetry - Labs CBC & Chem 7: 02/06/18 21:33 02/06/18 22:15
[2018-02-09] MEDS ORDERED: DULCOLAX PR ONE (22:24)
--- NOTE | 2018-02-10 14:36 | Discharge Summary ---
Providers - Providers Date of Admission: 02/07/18 00:58 Date of discharge: 02/10/18 Attending physician: REX JEAN 02/07/18 00:59 Consult to Physician [CONS] Routine Comment: Consulting Provider: BERNA VILLEDA Physician Instructions: Reason For Exam: SKELETAL LESIONS SUSPICIOUS FOR METASTASIS 02/08/18 09:42 Consult to Interventional Radiology [CONS] Routine Consulting Provider: FEDERICO MCINTYRE Reason For Exam: biopsy t [address] consult to:: dr mcintyre Notified:: stormy Was contact made?: Yes If yes, spoke with:: stormy Time called:: 11:52 Primary care physician: INVEST[employer]ATOR [employer] Hospitalization Condition: Stable Hospital course: - Sclerotic bone lesion - suspected metastatic disease initially by CT scan Oncologist consulted SPEP and bone scan ordered Plan for bone biopsy cancelled after bone scan by IR - Epigastric pain, likely due to GERD Commence patient on Pepcid - Nausea vomiting Commence patient on Zofran. IV hydration. - DVT and GI ppx with heparin and Pepcid Physical exam: Constitutional: Well-nourished well-developed. In no distress Head: Normocephalic atraumatic Eyes: Pupils are equal round and reactive to light Nose: No enlarged turbinates, no septal deviation. Mouth: Moist mucous membranes. Neck: Supple no thyromegaly. No bruit. No JVD Heart: Regular rate and rhythm, S1-S2 abnormal. No rubs murmurs or gallop Lungs: Clear to auscultation bilaterally no rales or rhonchi Abdomen: Soft, epigastric tenderness. Bowel sound are present. Extremities: No edema no cyanosis and no clubbing. Neuro: Alert oriented Oriented x3. No focal sensory or motor deficit. Skin: No rashes no hyperemic spots Psychiatry: Euthymic. Calm. Disposition: DC-01 TO HOME OR SELFCARE Time spent for discharge: 32 minutes Core Measure Documentation - Palliative Care Palliative Care/ Comfort Measures: Not Applicable - Core Measures Any of the following diagnoses?: none Exam - Constitutional Vitals: Temp Pulse Resp BP Pulse Ox 99.1 F 58 L 18 118/76 100 02/10/18 07:39 02/10/18 07:39 02/10/18 07:39 02/10/18 07:39 02/10/18 07:39 Plan Activity: advance as tolerated Weight Bearing Status: Non-Weight Bearing Diet: low fat, low salt Additional Instructions: f/u with Dr Burks in one week Follow up with: PRIMARY CARE, [Primary Care Provider] - 3-5 Days Prescriptions: Omeprazole Magnesium [PriLOSEC Otc] 20 mg PO QDAY #30 tablet. traMADol [Ultram 50 MG tab] 50 mg PO Q6HR PRN #10 tablet PRN Reason: Pain
[2018-02-10 16:39] VITALS: BP 122/70
[2018-02-10 22:18] LABS: Albumin 3.5 g/dL (3.8-4.8); Gamma Globulin 0.8 g/dL (0.8-1.7)
--- NOTE | 2018-02-11 08:20 | History and Physical Report ---
CHIEF COMPLAINT: Abdominal pain. HISTORY OF PRESENT ILLNESS: The patient is a 37-year-old male who has been having abdominal pain going on from days associated with nausea and vomiting. The patient states he cannot keep anything down. He has no history of fever, no history of chills. Also, there is no history of shortness of breath or chest pain and also the patient denies history of diarrhea. Denies history of headache and presented to the Emergency Room for evaluation. PAST MEDICAL HISTORY: Pertinent for renal insufficiency, asthma and gastric ulcer. PAST SURGICAL HISTORY: Unremarkable. FAMILY HISTORY: Noncontributory. SOCIAL HISTORY: The patient does not smoke, does not drink and does not use illicit drugs. MEDICATIONS: The patient is on Prilosec 20 mg daily, Phenergan 25 mg by mouth every 8 hours, Percocet 5/325 one by mouth every 6 hours, Zofran 4 mg every 8 hours as needed for nausea and vomiting, tramadol 50 mg every 6 hours as needed for pain and Protonix 40 mg by mouth twice daily. ALLERGIES: There are no known drug allergies. REVIEW OF SYSTEMS: CONSTITUTIONAL: There is no fever, no chills, no diaphoresis. HEENT: There is no headache or sore throat. CARDIOVASCULAR: There is no chest pain or orthopnea. RESPIRATORY: There is no shortness of breath or cough. GASTROINTESTINAL: Abdominal pain present. Nausea and vomiting present. No diarrhea, no constipation. NEUROLOGICAL: There is no numbness, no dizziness, no altered mental status. MUSCULOSKELETAL: There is no joint pain or swelling. DERMATOLOGICAL: There is no skin rash or itching. GENITOURINARY: There is no dysuria, hematuria or flank pain. Rest of system review is normal. PHYSICAL EXAMINATION: GENERAL: At the time of exam, the patient was found to be alert and oriented x 3 and in [id number] distress due to abdominal pain. VITAL SIGNS: Shows temperature of 98.6 Fahrenheit, pulse of 45, respirations 16, blood pressure 121/64, O2 sat of 99% on room air. HEENT: Shows pupils to be equal, round, reactive to light and accommodative. Extraocular muscles are intact. NECK: Supple with no JVD or carotid bruit. CARDIOVASCULAR: Showed second heart sounds, with no gallops or murmurs. RESPIRATORY: Show good air entry on both sides of the lung with no abnormal breath sounds. GASTROINTESTINAL: Showed abdomen to full, soft with generalized tenderness with no guarding or rigidity and no rebound tenderness. Bowel sounds were found to be normal. NEUROLOGIC: Showed no focal neurologic deficit. MUSCULOSKELETAL: Showed no joint swelling or tenderness. DERMATOLOGICAL: Showed no skin rash. GENITOURINARY: Showing no costovertebral angle tenderness. PERTINENT LABORATORY AND IMAGING STUDIES: The patient has CBC done with normal white count, normal hemoglobin and normal hematocrit with unremarkable CBC differential. The patient's chemistry showed low sodium of 136 with normal potassium, low chloride of 93.9 with rest of chemistry being unremarkable. Urinalysis showed high urine pH of 8 and high urine specific gravity of 1.56, with negative leukocyte esterase, negative nitrites. Normal urine wbc, normal urine rbc's and no bacteria. IMAGING STUDIES: The patient had CT of the abdomen and pelvis with contrast done that shows no acute intra-abdominal pelvic pathology; however, multiple sclerotic skeletal lesions are suspicious for metastatic disease and the radiologist said that full scan is recommended. DIAGNOSES: 1. Abdominal pain. 2. Bradycardia. 3. Abnormal CT findings of skeletal lesions. PLAN: 1. The patient will be admitted to medical surgical floor. 2. The patient will have his echocardiogram done this month to evaluate the bradycardia. 3. The patient will be on IV morphine 2 mg every 3 hours as needed for pain and IV Zofran 4 mg every 6 hours for nausea and vomiting. 4. The patient will be on IV Protonix 40 mg daily. 5. The patient will be on Tylenol 650 mg by mouth every 4 hours for fever and headache and we will have Oncology consult with ____ for evaluation of suspicious skeletal sclerotic lesion. 6. The patient's home medication has been reconciled and will be started accordingly. JOB# [id number] OCN/NTS
== END 2018-02-10 18:00 | disposition home or self-care (01) | DRG 392 ==
LOC: ED 17:54 → 3A 02-07 00:58
PROVIDERS: ADMIT Internal Medicine; ATTEND Internal Medicine
DX: K21.9 Gastro-esophageal reflux disease without esophagitis (principal); M89.9 Disorder of bone, unspecified; R00.1 Bradycardia, unspecified; Z87.11 Personal history of peptic ulcer disease
CPT/HCPCS: 36415; 71045; 74177; 78306; 80053; 81001; 82728; 83690; 84153; 84165; 85025; 85610; 93306; 96361; 96374; 96375; A9503; C9113; J1644; J2270; J2405; J7030; Q9967